=== PATIENT | male | born 1930 | race Caucasian/White ===

== ENCOUNTER → 2016-04-11 | Outpatient (CLI) | payer BC ==
[~2016-04-11] MED LIST: AMLO-110 PO; CALCIUM PO; GABA-112 PO; Iron PO; LOSA1TAB PO; MAG PO; OMEG10007 PO; SIMV10TA2 PO; Stool Softner PO; VITD PO
[2016-04-11 10:09] LABS: HEMATOCRIT 31.4 % (42-52); MEAN CELL VOLUME 89.7 fL (80-100); MEAN CORPUSCULAR HEMOGLOBIN 32.6 pg (25-34); MEAN CORPUSCULAR HGB CONC 36.3 g/dl (32-36); WHITE BLOOD COUNT 3.19 K/uL (4.8-10.8)
[2016-04-11 10:15] LABS: MEAN PLATELET VOLUME 10.1 fL (7.4-10.4); PLATELET COUNT 76 K/uL (130-400)
[2016-04-11 10:40] LABS: BLOOD UREA NITROGEN 43 mg/dl (7-18); BUN/CREATININE RATIO 18.8 (10-20); CALCIUM 9.8 mg/dl (8.5-10.1); CARBON DIOXIDE 27 mmol/L (21-32); CHLORIDE 102 mmol/L (98-107); GLUCOSE 122 mg/dl (70-99); POTASSIUM 4.2 mmol/L (3.5-5.1); SODIUM 138 mmol/L (136-145)
[2016-04-11 11:03] LABS: URINE PROTIEN/CREAT RATIO 0.8 (0-0.2); URINE TOTAL PROTEIN 34.7 mg/dl (0-11.9)
[2016-04-11 12:10] LABS: URINE APPEARANCE CLEAR (CLEAR); URINE BILIRUBIN NEG (NEG); URINE COLOR YELLOW; URINE EPITHELIAL CELL AUTO 0-5 /lpf (0-5); URINE NITRITE NEG (NEG); URINE SPECIFIC GRAVITY 1.006 (1.000-1.030); UROBILINOGEN NEG (NEG)
[2016-04-11 12:19] LABS: MANUAL MICROSCOPIC REQUIRED? NO; REVIEW REQ? NO
[2016-04-11 13:46] LABS: ESTIMATED AVERAGE GLUCOSE 114 mg/dl; HA1C FLAG Normal (Normal)
== END | disposition home or self-care (01) ==
LOC: C.LAB1850 09:18
PROVIDERS: ATTEND Internal Medicine Nephrology
DX: E11.22 Type 2 diabetes mellitus with diabetic chronic kidney disease (principal); N25.81 Secondary hyperparathyroidism of renal origin; D63.8 Anemia in other chronic diseases classified elsewhere; R80.9 Proteinuria, unspecified; N18.4 Chronic kidney disease, stage 4 (severe); I12.9 Hypertensive chronic kidney disease with stage 1 through stage 4 chronic kidney disease, or unspecified chronic kidney disease

== ENCOUNTER → 2016-09-14 | Outpatient (CLI) | payer BC ==
[2016-09-14 10:08] LABS: URINE APPEARANCE CLEAR (CLEAR); URINE BILIRUBIN NEG (NEG); URINE COLOR YELLOW; URINE EPITHELIAL CELL AUTO 0-5 /lpf (0-5); URINE NITRITE NEG (NEG); URINE PH 5.5 (4.5-7.5); URINE SPECIFIC GRAVITY 1.013 (1.000-1.030); UROBILINOGEN NEG (NEG)
[2016-09-14 10:14] LABS: MANUAL MICROSCOPIC REQUIRED? NO; REVIEW REQ? NO
[2016-09-14 10:22] LABS: URINE PROTIEN/CREAT RATIO 0.6 (0-0.2); URINE TOTAL PROTEIN 46.6 mg/dl (0-11.9)
[2016-09-14 10:36] LABS: HEMATOCRIT 33.7 % (42-52); MEAN CELL VOLUME 91.3 fL (80-100); MEAN CORPUSCULAR HEMOGLOBIN 31.2 pg (25-34); MEAN CORPUSCULAR HGB CONC 34.1 g/dl (32-36); MEAN PLATELET VOLUME 10.5 fL (7.4-10.4); PLATELET COUNT 95 K/uL (130-400); RED BLOOD COUNT 3.69 M/uL (4.7-6.1); WHITE BLOOD COUNT 4.09 K/uL (4.8-10.8)
[2016-09-14 10:47] LABS: PLT ESTIMATE DECREASED
[2016-09-14 12:29] LABS: BLOOD UREA NITROGEN 44 mg/dl (7-18); BUN/CREATININE RATIO 18.2 (10-20); CALCIUM 10.4 mg/dl (8.5-10.1); CARBON DIOXIDE 27 mmol/L (21-32); CHLORIDE 104 mmol/L (98-107); GLUCOSE 122 mg/dl (70-99); POTASSIUM 4.4 mmol/L (3.5-5.1); SODIUM 137 mmol/L (136-145)
== END | disposition home or self-care (01) ==
LOC: C.LAB1850 09:01
PROVIDERS: ATTEND Internal Medicine Nephrology
DX: I12.9 Hypertensive chronic kidney disease with stage 1 through stage 4 chronic kidney disease, or unspecified chronic kidney disease (principal); N25.81 Secondary hyperparathyroidism of renal origin; D63.8 Anemia in other chronic diseases classified elsewhere; N18.4 Chronic kidney disease, stage 4 (severe); D61.818 Other pancytopenia; R80.9 Proteinuria, unspecified

== ENCOUNTER → 2016-11-21 | Outpatient (CLI) | payer BC ==
[2016-11-21 16:43] LABS: HEMATOCRIT 33.8 % (42-52); MEAN CELL VOLUME 92.9 fL (80-100); MEAN CORPUSCULAR HEMOGLOBIN 31.9 pg (25-34); MEAN CORPUSCULAR HGB CONC 34.3 g/dl (32-36); RED BLOOD COUNT 3.64 M/uL (4.7-6.1); WHITE BLOOD COUNT 5.98 K/uL (4.8-10.8)
[2016-11-21 17:09] LABS: ALT/SGPT 26 U/L (12-78); BLOOD UREA NITROGEN 61 mg/dl (7-18); BUN/CREATININE RATIO 25.5 (10-20); CALCIUM 10.4 mg/dl (8.5-10.1); CARBON DIOXIDE 26 mmol/L (21-32); CHLORIDE 105 mmol/L (98-107); CHOLESTEROL 97 mg/dl (0-200); GLUCOSE 155 mg/dl (70-99); POTASSIUM 4.3 mmol/L (3.5-5.1); SODIUM 140 mmol/L (136-145)
[2016-11-21 17:11] LABS: AST/SGOT 28 U/L (15-37); CHOLESTEROL/HDL RATIO 3.1; HDL CHOLESTEROL 31 mg/dl; LDL CHOLESTEROL CALCULATED 39 mg/dl; TRIGLYCERIDES 137 mg/dl (0-150); VERY LOW DENSITY LIPOPROT CALC 27 mg/dl
[2016-11-21 17:19] LABS: BASO % 0.5 %; BASO ABS # 0.03 K/uL (0-0.2); COMPLETE YES; EOS % 0.7 %; IG% 0.2 %; LYMPH % 23.4 %; MEAN PLATELET VOLUME 10.8 fL (7.4-10.4); NEUT % 66.2 %; PLATELET COUNT 99 K/uL (130-400); PLT ESTIMATE DECREASED
== END | disposition home or self-care (01) ==
LOC: C.LAB1850 15:08
PROVIDERS: ATTEND Internal Medicine
DX: E11.8 Type 2 diabetes mellitus with unspecified complications (principal); E78.5 Hyperlipidemia, unspecified; D61.818 Other pancytopenia

== ENCOUNTER → 2017-02-22 | Outpatient (CLI) | payer BC ==
[~2017-02-22] MED LIST changes: -AMLO-110 PO; +AMLO5TAB3 PO; +CALC600T9 PO; +DOCU-94 PO; +FERR1TAB23 PO; +FURO-85 PO; +LDDP5 TD; +METO-551 PO; +MORP15TA PO
== END | disposition home or self-care (01) ==
LOC: C.LAB1850 09:10
PROVIDERS: ATTEND Internal Medicine
DX: E78.5 Hyperlipidemia, unspecified (principal)

== ENCOUNTER → 2017-04-24 | Outpatient (CLI) | payer BC ==
[~2017-04-24] MED LIST changes: +AMLO-110 PO; -AMLO5TAB3 PO; -CALC600T9 PO; -DOCU-94 PO; -FERR1TAB23 PO; -FURO-85 PO; -LDDP5 TD; -METO-551 PO; -MORP15TA PO
[2017-04-24 15:38] LABS: HEMATOCRIT 34.1 % (42-52); MEAN CELL VOLUME 92.9 fL (80-100); MEAN CORPUSCULAR HEMOGLOBIN 32.7 pg (25-34); MEAN CORPUSCULAR HGB CONC 35.2 g/dl (32-36); RED CELL DISTRIBUTION WIDTH CV 13.3 % (11.5-14.5); RED CELL DISTRIBUTION WIDTH SD 44.9 fL (36.4-46.3); WHITE BLOOD COUNT 5.25 K/uL (4.8-10.8)
[2017-04-24 16:06] LABS: MEAN PLATELET VOLUME 10.7 fL (7.4-10.4); PLATELET COUNT 94 K/uL (130-400)
[2017-04-24 16:09] LABS: ALBUMIN 3.9 gm/dl (3.4-5.0); BLOOD UREA NITROGEN 49 mg/dl (7-18); CALCIUM 9.9 mg/dl (8.5-10.1); CARBON DIOXIDE 29 mmol/L (21-32); CREATININE 2.45 mg/dl (0.60-1.40); GLUCOSE 117 mg/dl (70-99); PHOSPHORUS 3.1 mg/dl (2.5-4.9); POTASSIUM 4.1 mmol/L (3.5-5.1); SODIUM 136 mmol/L (136-145)
== END | disposition home or self-care (01) ==
LOC: C.LAB1850 14:15
PROVIDERS: ATTEND Internal Medicine Nephrology
DX: E78.5 Hyperlipidemia, unspecified (principal); I12.9 Hypertensive chronic kidney disease with stage 1 through stage 4 chronic kidney disease, or unspecified chronic kidney disease; N25.81 Secondary hyperparathyroidism of renal origin; D63.8 Anemia in other chronic diseases classified elsewhere; N18.4 Chronic kidney disease, stage 4 (severe); R60.0 Localized edema

== ENCOUNTER 2020-09-15 13:59 | Observation (INO) ==
[2020-09-15] MEDS ORDERED: SODIUM CHLORIDE 0.9% 500 ML IV ONE (15:00)
--- NOTE | 2020-09-15 15:06 | Emergency Department Note ---
History of Present Illness General Chief complaint: Illness Stated complaint: DIARRHEA/EXTREME FATIGUE DOESN'T WANT TO EAT OR Time Seen by Provider: 09/15/20 14:09 Source: patient, family (Daughter who is at the bedside), RN notes reviewed and old records reviewed Mode of arrival: ambulatory Limitations: no limitations History of Present Illness Maximum Pain Intensity: 0 This patient is an 89-year-old male who comes in after having increasing fatigue weakness decreased appetite and diarrhea over the last week. He does tend to have diarrhea off and on but is from worse. It is 1-2 times a day. Is been nonbloody nonmucus. He denies any pain anywhere. No abdominal pain or fever or chills. No chest pain shortness of breath or dizziness. He is lost about 10 pounds in the last 6 months. He does have some baseline memory issues that may have gotten a little bit worse. He has a history of a pacemaker and A. fib but is not on any anticoagulation has history of prostate cancer in the past as well. He has had his Covid vaccine x2. No focal numbness or weakness. When I ask him why he is not eating he says that he is just not hungry. Home Medications Medication Instructions Recorded Confirmed Type omega-3 fatty acids-fish oil 360 1 cap PO BID #60 cap 08/01/18 09/15/20 Rx mg-1,200 mg capsule (Fish Oil) blood sugar diagnostic (Contour ea 12/10/18 08/18/20 History Test Strips) lancets (Microlet Lancet) ea 12/10/18 08/18/20 History amlodipine 5 mg tablet 5 mg PO BID #60 tab 02/06/20 09/15/20 Rx metoprolol tartrate 50 mg tablet 50 mg PO BID #180 tab 05/26/20 09/15/20 Rx multivitamin 1 tab PO DAILY 08/18/20 09/15/20 History simvastatin 10 mg tablet 10 mg PO QAM 09/15/20 09/15/20 History tamsulosin 0.4 mg capsule (Flomax) 0.4 mg PO QAM 09/15/20 09/15/20 History Allergies Allergy/AdvReac Type Severity Reaction Status Date / Time Dyazide Allergy Unknown patient Verified 12/01/10 16:09 does not remember hydrochlorothiazide Allergy Unknown patient Unverified 09/15/20 15:56 does not remember triamterene Allergy Unknown patient Unverified 09/15/20 15:56 does not remember Past Med/Surg History Medical History Adenocarcinoma of prostate Adrenal cortical adenoma Anemia Aneurysm of thoracic aorta Aortic regurgitation Cardiac pacemaker Chronic kidney disease, 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 Diabetic peripheral neuropathy DVT (deep venous thrombosis) Hyperlipidemia Hypertension Myelodysplasia (myelodysplastic syndrome) Osteoarthritis Vertebral compression fracture Surgical History History of radical retropubic prostatectomy S/P inguinal hernia repair S/P placement of cardiac pacemaker Family History Sister Chronic kidney disease Brother Prostate cancer Denies family history of Ovarian cancer Myocardial infarction Breast cancer Colorectal cancer Social History Smoking Status: Former smoker Second Hand Exposure: Yes; Hx Alcohol Use: No (STOPPED DRINKING ALCOHOL) Hx Substance Use: No Preferred Language: Belarusian Communication Ability: Effective Visual Impairment: No Limitations Hearing Ability: Normal marital status: Current Living Situation: Family current occupational status: retired Feels Safe at Home: Yes Childhood Exposure to Second-Hand Smoke: Yes Dental Care, Regularly: Yes Physical Activity Frequency: Does not Exercise Seatbelt Use: always Sunscreen Use: No Review of Systems A total of 10 systems reviewed and were otherwise negative Physical Exam Vital Signs Vital Signs - 24 hr 09/15/20 14:04 09/15/20 15:27 Temperature 36.6 C Temperature Source Temporal Artery Scan Pulse Rate 71 Pulse Rhythm Regular Pulse Strength Normal Respiratory Rate 16 Respiratory Effort / Characteristics Non-Labored Respiratory Depth Normal Respiratory Pattern Regular Blood Pressure 117/47 L Blood Pressure Mean 70 Blood Pressure Position Sitting Pulse Oximetry 97 Oxygen Delivery Method Room Air Room Air Sepsis Recent Fever Within 48 Hours No Sepsis New/Unexplained Change in Mental Status N/A Sepsis Action Taken by Nursing No Action Required General: Well developed well nourished somewhat cachectic older male who appears in no acute distress, breathing comfortably on room air. Normal speech HEENT: Normal cephalic atraumatic. Pupils are equal round and reactive to light. Extraocular movements are intact. Oropharynx is pink with moist mucous membranes. No swelling of the mouth lips or tongue. Neck: Supple with a midline trachea. No meningeal signs or stiffness, no JVD or bruits. No Stridor. Chest: Clear to auscultation bilaterally. No wheezes or rhonchi. No increased work of breathing. Heart: Regular rate and rhythm without murmurs or gallops. Abdomen: Soft nontender, nondistended without rebound guarding or rigidity. Extremities: No cyanosis clubbing or edema. No calf tenderness or assymetry Spine/Back. Non tender to palpation. No CVA tenderness Skin: Good turgor without rashes. Neurologic exam: Cranial nerves two through 12 are intact. Motor and sensation are intact and symmetrical throughout. Course Administered Medications Discontinued Medications Sodium Chloride (Nss) 500 mls @ 999 mls/hr IV .Q31M ONE Stop: 09/15/20 15:30 Last Infusion: 09/15/20 15:57 Dose: 0 mls/hr Documented by: [id number] Admin: 09/15/20 15:18 Dose: 999 mls/hr Documented by: [id number] Medical Decision Making Differential Diagnosis Dehydration, electrolyte or metabolic abnormality, cardiac disease, diarrhea, C ovid, electrolyte or metabolic abnormality, diarrhea illness, C. difficile, infection Medical Records Attestation: I reviewed the patient's medical records. Home Medications Current Medication List: was personally reviewed by me Laboratory Data Attestation: I reviewed the patient's lab results. Result diagrams: 09/15/20 15:16 09/15/20 15:16 Lab Results 09/15/20 09/15/20 09/15/20 Range/Units 15:16 15:16 15:16 WBC 4.60 L (4.8-10.8) K/uL RBC 2.99 L (4.7-6.1) M/uL Hgb 10.1 L (14.0-18.0) g/dL Hct 27.6 L (42-52) % MCV 92.3 (80-100) fL MCH 33.8 (25-34) pg MCHC 36.6 H (32-36) g/dL RDW Std Deviation 45.3 (36.4-46.3) fL RDW Coeff of Liliana 13.4 (11.5-14.5) % Plt Count 109 L (130-400) K/uL MPV 10.2 (7.4-10.4) fL Immature Gran % (Auto) 0.7 % Neut % (Auto) 65.8 % Lymph % (Auto) 25.0 % Kinney % (Auto) 6.7 % Eos % (Auto) 1.1 % Baso % (Auto) 0.7 % Neut # (Auto) 3.03 (1.4-6.5) K/uL Lymph # (Auto) 1.15 L (1.2-3.4) K/uL Kinney # (Auto) 0.31 (0.11-0.59) K/uL Eos # (Auto) 0.05 (0-0.5) K/uL Baso # (Auto) 0.03 (0-0.2) K/uL Immature Gran # (Auto) 0.03 H (0.00-0.02) K/uL Sodium 135 L (136-145) mmol/L Potassium 4.2 (3.5-5.1) mmol/L Chloride 109 H (98-107) mmol/L Carbon Dioxide 20 L (21-32) mmol/L Anion Gap 7.0 (3-11) BUN 59 H (7-18) mg/dl Creatinine 2.58 H (0.6-1.4) mg/dl Est Cr Clr Drug Dosing 15.8 ml/min Est GFR ( Amer) 24.5 ml/min Est GFR (Non-Af Amer) 21.1 ml/min BUN/Creatinine Ratio 23.0 H (10-20) Glucose 136 H (70-99) mg/dl Lactate 1.3 (0.4-2.0) mmol/L Calcium 9.2 (8.5-10.1) mg/dl Total Bilirubin 0.6 (0.2-1) mg/dl AST 22 (15-37) U/L ALT 27 (12-78) U/L Alkaline Phosphatase 59 (45-117) U/L Troponin I < 0.015 (0-0.045) ng/ml Total Protein 6.9 (6.4-8.2) gm/dl Albumin 3.5 (3.4-5.0) gm/dl Globulin 3.4 (2.5-4.0) gm/dl Albumin/Globulin Ratio 1.0 (0.9-2) TSH 1.580 (0.300-4.500) uIu/ml COVID-19 Eval Order SARS-CoV-2 (PCR) (Negative) 09/15/20 09/15/20 Range/Units Unknown Unknown WBC (4.8-10.8) K/uL RBC (4.7-6.1) M/uL Hgb (14.0-18.0) g/dL Hct (42-52) % MCV (80-100) fL MCH (25-34) pg MCHC (32-36) g/dL RDW Std Deviation (36.4-46.3) fL RDW Coeff of Liliana (11.5-14.5) % Plt Count (130-400) K/uL MPV (7.4-10.4) fL Immature Gran % (Auto) % Neut % (Auto) % Lymph % (Auto) % Kinney % (Auto) % Eos % (Auto) % Baso % (Auto) % Neut # (Auto) (1.4-6.5) K/uL Lymph # (Auto) (1.2-3.4) K/uL Kinney # (Auto) (0.11-0.59) K/uL Eos # (Auto) (0-0.5) K/uL Baso # (Auto) (0-0.2) K/uL Immature Gran # (Auto) (0.00-0.02) K/uL Sodium (136-145) mmol/L Potassium (3.5-5.1) mmol/L Chloride (98-107) mmol/L Carbon Dioxide (21-32) mmol/L Anion Gap (3-11) BUN (7-18) mg/dl Creatinine (0.6-1.4) mg/dl Est Cr Clr Drug Dosing ml/min Est GFR ( Amer) ml/min Est GFR (Non-Af Amer) ml/min BUN/Creatinine Ratio (10-20) Glucose (70-99) mg/dl Lactate (0.4-2.0) mmol/L Calcium (8.5-10.1) mg/dl Total Bilirubin (0.2-1) mg/dl AST (15-37) U/L ALT (12-78) U/L Alkaline Phosphatase (45-117) U/L Troponin I (0-0.045) ng/ml Total Protein (6.4-8.2) gm/dl Albumin (3.4-5.0) gm/dl Globulin (2.5-4.0) gm/dl Albumin/Globulin Ratio (0.9-2) TSH (0.300-4.500) uIu/ml COVID-19 Eval Order Covid19 at [facility] SARS-CoV-2 (PCR) NEGATIVE (Negative) Imaging Data Attestation: I personally reviewed and interpreted this imaging study as follows: My Impression: Chest x-raycardiomegaly without any definite CHF pneumonia or pneumothorax Radiologist's Impression: Chest X-Ray 09/15/20 14:49 XR chest 1V portable HISTORY: weakness COMPARISON: Chest 12/21/2016. FINDINGS: The lungs are hyperexpanded with mild apical predominant emphysematous changes. A few bibasilar linear densities favor scarring. This is similar to the prior study. No new focal lung consolidations to suggest pneumonia. No evidence for pulmonary edema. The heart remains mildly enlarged. There is a left-sided dual-chamber pacemaker. IMPRESSION: 1. Mild cardiomegaly and emphysema. 2. Bibasilar linear densities, unchanged. This favors scarring. 3. No acute process within the chest. ACT 112: Negative or not required by law. Electronically signed by: Ken Patrick M.D. 09/15/2020 4:08 PM ECG Data Attestation: I personally reviewed and interpreted this ECG as follows: Indication: + weakness Rate (beats per minute): 68 Rhythm: + other (Atrial paced rhythm with prolonged AV conduction) ECG Intervals/blocks: + Incomplete right bundle branch block and + Normal QT ECG [place]: + Normal ECG ST segments: + Normal ST segments ECG Findings: no PACs or no PVCs Comparison ECG Date: from (Compared to 11/29/2011, there may be a conduction delay in the atrial paced lead) MDM Narrative This patient comes in with weakness over the last week decreased appetite fatigue and diarrhea. The patient downplays his symptoms and his daughter is concerned that he is getting worse. He looks well on exam and stable vital signs. IV access was established and he was hydrated with IV normal saline bolus. Multiple blood testing was obtained. Stool studies were obtained. EKG and chest x-ray were obtained. He was reassessed frequently. He did not give a stool sample. He was able to urinate. He has no significant white count or f ever to suggest infection. He does have renal insufficiency but it is about the same as normal. His lactic acid is not elevated. EKG does not suggest acute coronary syndrome or arrhythmia. He seems to have had a functional decline at home. He is got increasingly weak he is not eating. He is very wobbly on his feet. His symptoms are nonfocal. According to his chart over the last 6 weeks his weight is down almost 30 pounds. I do think he needs to be admitted/observe for further treatment and evaluation we have consulted the not any hospitalist team to see him. Continuous cardiac monitoring: An order was placed in the EMR for continuous cardiac monitoring. The patient was noted to have a paced rhythm with a rate of 70 upon my interpretation Impression & Plan Weakness, Pacemaker, Ambulatory dysfunction, Lab test negative for COVID-19 virus, Recent weight loss Discharge Plan Visit Data Chief Complaint: Illness Stated Complaint: DIARRHEA/EXTREME FATIGUE DOESN'T WANT TO EAT OR ED Provider: Oseas Salazar ED Midlevel Provider: Alli Kent Discharge Problem: Weakness, Pacemaker, Ambulatory dysfunction, Lab test negative for COVID-19 vi renny, Recent weight loss Patient Disposition: Being Evaluated by Hospitalist Forms Stand Alone Forms: My [facility] Flavours Prescriptions Prescriptions: No Action amlodipine 5 mg tablet 5 mg PO BID Qty: 60 RF: 11 metoprolol tartrate 50 mg tablet 50 mg PO BID Qty: 180 RF: 3 omega-3 fatty acids-fish oil [Fish Oil] 360-1,200 mg capsule 1 cap PO BID Qty: 60 RF: 0 (DME) Contour Test Strips strip See Dose Instructions .ROUTE .MEDSUPPLY RF: 0 (DME) lancets [Microlet Lancet] misc See Dose Instructions .ROUTE .MEDSUPPLY RF: 0 multivitamin Tablet 1 tab PO DAILY RF: 0 simvastatin 10 mg tablet 10 mg PO QAM RF: 0 tamsulosin [Flomax] 0.4 mg capsule 0.4 mg PO QAM RF: 0 Referrals Referrals: Nathan Godinez MD [Primary Care Provider] -
[2020-09-15 15:31] LABS: Basophils # (auto) 0.03 K/uL (0-0.2); Basophils % (auto) 0.7 %; Eosinophils # (auto) 0.05 K/uL (0-0.5); Eosinophils % (auto) 1.1 %; Hematocrit (blood only) 27.6 % (42-52); Hemoglobin 10.1 g/dL (14.0-18.0); Immature Granulocytes # (auto) 0.03 K/uL (0.00-0.02); Immature Granulocytes % (auto) 0.7 %; Lymphocytes # (auto) 1.15 K/uL (1.2-3.4); Mean Corpuscular Hemoglobin 33.8 pg (25-34); Mean Corpuscular Hgb Conc 36.6 g/dL (32-36); Mean Corpuscular Volume 92.3 fL (80-100); Mean Platelet Volume 10.2 fL (7.4-10.4); Monocytes # (auto) 0.31 K/uL (0.11-0.59); Monocytes % (auto) 6.7 %; Neutrophils # (auto) 3.03 K/uL (1.4-6.5); Neutrophils % (auto) 65.8 %; Platelet Count 109 K/uL (130-400); RDW Coefficient of Variation 13.4 % (11.5-14.5); RDW Standard Deviation 45.3 fL (36.4-46.3); Red Blood Count 2.99 M/uL (4.7-6.1)
[2020-09-15 15:48] LABS: Alanine Aminotransferase 27 U/L (12-78); Albumin Level 3.5 gm/dl (3.4-5.0); Aspartate Aminotransferase 22 U/L (15-37); Blood Urea Nitrogen 59 mg/dl (7-18); Calcium 9.2 mg/dl (8.5-10.1); Carbon Dioxide 20 mmol/L (21-32); Chloride 109 mmol/L (98-107); Creatinine Clr Calc Pharmacy 15.8 ml/min; Est GFR (African American) 24.5 ml/min; Est GFR (Non-African American) 21.1 ml/min; Glucose 136 mg/dl (70-99); Potassium 4.2 mmol/L (3.5-5.1); Sodium 135 mmol/L (136-145)
[2020-09-15 15:59] LABS: Alkaline Phosphatase 59 U/L (45-117); Bilirubin,Total 0.6 mg/dl (0.2-1); Globulin 3.4 gm/dl (2.5-4.0); Total Protein 6.9 gm/dl (6.4-8.2); Troponin I < 0.015 ng/ml (0-0.045)
--- NOTE | 2020-09-15 16:09 | XRay Report ---
XR chest 1V portable HISTORY: weakness COMPARISON: Chest 12/21/2016. FINDINGS: The lungs are hyperexpanded with mild apical predominant emphysematous changes. A few bibas ilar linear densities favor scarring. This is similar to the prior study. No new focal lung consolida tions to suggest pneumonia. No evidence for pulmonary edema. The heart remains mildly enlarged. There is a left-sided dual-chamber pacemaker. IMPRESSION: 1. Mild cardiomegaly and emphysema. 2. Bibasilar linear densities, unchanged. This favors scarring. 3. No acute process within the chest. ACT 112: Negative or not required by law. Electronically signed by: Ken Patrick M.D. 09/15/2020 4:08 PM
--- NOTE | 2020-09-15 18:04 | History & Physical Report ---
Date of Service September 15, 2020 Assessment & Plan (1) Weakness: Plan: 1-2 months of increase sleepiness and fatigue. - no gross muscle weakness on exam - likley related to decrease in caloric intake - B12 - 820 from 529 - Folate level in the morning - Will add thiamine 300 mg IV daily for malnourishment - Calorie count, nutrition consult, evaluate for nutritional supplementation/meal replacement, nutrition log likely be helpful - Patient does not appear depressed and is in good spirits - His wbc counts and hgb/hct have been stable over the past year - Could this be related to his cognitive impairment- consider re-engagement of cognition medication declined by patient back in January - This may help his overall stimulation - blood cultures ordered in EMD- follow (2) Diarrhea: Plan: Not infectious appearing, continue stool culture likely to be unhelpful - will follow amount and frequency while in house - this does not appear to be malabsorption but secondary to decreased intake - Will send TGA and IGA for evaluation of celiac - Follow stool count with nutritional intake for true evaluation of process - Could consider GI consult for EGD/colonoscopy (3) Recent weight loss: Plan: As above- (4) Hyperlipidemia: Plan: Continue statin (5) S/P placement of cardiac pacemaker: Plan: Appropriatly sensing and pacing - no acute needs (6) Hypertension: Plan: Well controlled (7) Mild cognitive impairment: Plan: Was to have nuerocognitive testing as outpatient- not sure if this was completed - This may be playing a bigger role in his function than originally thought (8) Pancytopenia: Plan: Myelodysplasia as underlying pathology - WBC, HGB/HCT, PLT count low - but at baseline and stable for the past year (9) Secondary hyperparathyroidism: Plan: Calcium normal - last PTH 86.4 - not on current therapy History of Present Illness Primary Care Provider: Nathan Godinez MD 89 YOM with past medical history of: sick sinus syndrome with pacemaker insertion, thoracic aneurysm, aortic regurgitation, memory impairment, CKD IV, HTN, anemia, myelodysplasia (no treatment), adenocarcinoma of the prostate s/p prostatectomy. Frail appearing gentlemen brought to the EMD today with his daughter for concerns of decrease in appetite and fluid intake, increase in sleepiness as well as diarrhea. This has been going on for over the past month or two with noted weight loss per the daughter. Review of his outpatient appointment with his PCP on the same scale the patient was at 160lbs in March and 154lbs in July. He states that he just does not feel hungry to eat, he denies early satiety or nausea/vomiting while eating. He doesn't eat much meat or protein per the daughter. He has a loose BM about every other day, which is described as dark brown to brown, mostly liquid with some small formed particles that float on the top of the water. There is no blood or mucous in the stools. He does not have the urge to go to the bathroom shortly after he eats or drinks. There is no pain with his bowel movements or cramping of the abdomen. The patient had this evaluated by his PCP last month with a b12 level of 820, TSH 1.5 (today) and 2.2 in July. Patient will be observed and continue to evaluate his intake, calorie count, stool amount and assess for loss of appetite. Allergies Allergy/AdvReac Type Severity Reaction Status Date / Time Dyazide Allergy Unknown patient Verified 12/01/10 16:09 does not remember hydrochlorothiazide Allergy Unknown patient Unverified 09/15/20 15:56 does not remember triamterene Allergy Unknown patient Unverified 09/15/20 15:56 does not remember Home Medications Medication Instructions Recorded Confirmed Type omega-3 fatty acids-fish oil 360 1 cap PO BID #60 cap 08/01/18 09/15/20 Rx mg-1,200 mg capsule (Fish Oil) blood sugar diagnostic (Contour ea 12/10/18 08/18/20 History Test Strips) lancets (Microlet Lancet) ea 12/10/18 08/18/20 History amlodipine 5 mg tablet 5 mg PO BID #60 tab 02/06/20 09/15/20 Rx metoprolol tartrate 50 mg tablet 50 mg PO BID #180 tab 05/26/20 09/15/20 Rx multivitamin 1 tab PO DAILY 08/18/20 09/15/20 History simvastatin 10 mg tablet 10 mg PO QAM 09/15/20 09/15/20 History tamsulosin 0.4 mg capsule (Flomax) 0.4 mg PO QAM 09/15/20 09/15/20 History Past Med/Surg History Medical History Adenocarcinoma of prostate Adrenal cortical adenoma Anemia Aneurysm of thoracic aorta Aortic regurgitation Cardiac pacemaker Chronic kidney disease, 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 Diabetic peripheral neuropathy DVT (deep venous thrombosis) Hyperlipidemia Hypertension Myelodysplasia (myelodysplastic syndrome) Osteoarthritis Vertebral compression fracture Surgical History History of radical retropubic prostatectomy S/P inguinal hernia repair S/P placement of cardiac pacemaker Family History Sister Chronic kidney disease Brother Prostate cancer Denies family history of Ovarian cancer Myocardial infarction Breast cancer Colorectal cancer Social History Smoking Status: Former smoker Second Hand Exposure: Yes; Hx Alcohol Use: No (STOPPED DRINKING ALCOHOL) Hx Substance Use: No Preferred Language: German Communication Ability: Effective Visual Impairment: No Limitations Hearing Ability: Normal marital status: Current Living Situation: Family current occupational status: retired Feels Safe at Home: Yes Childhood Exposure to Second-Hand Smoke: Yes Dental Care, Regularly: Yes Physical Activity Frequency: Does not Exercise Seatbelt Use: always Sunscreen Use: No Review of Systems Review of Systems: REVIEW OF SYSTEMS: Constitutional: No fever, sweats or chills Eyes: No diplopia, no worsening or blurred vision ENT: (+) difficulty hearing, no trouble swallowing Respiratory: No cough, sputum, dyspnea at rest or on exertion Cardiovascular: No chest pain, tightness or palpitations Abdomen: (+) diarrhea, No pain, nausea, vomiting, or constipation Musculoskeletal: No joint pain, calf pain, swelling Neurologic: (+) fatigue and weakness, NO numbness/tingling, or balance problems Psychiatric: No anxiety or depression Skin: No rash or itch Physical Exam Physical Exam: PHYSICAL EXAM: General: awake, alert, no apparent distress Head: Normocephalic, atraumatic ENT: PERRL, EOMI, no pharyngeal exudate, mucous membranes moist Neuro: AAO x 3, speech clear and appropriate, strength intact bilaterally 5/5, sensation intact and equal all extremities and dermatomes, no pronator drift Chest: equal rise and fall of the chest, no accessory muscle use, no heaves or thrills, Clear to auscultation, on room air, Cardiac: Regular rate and rhythm, telemetry reviewed- appropriately paced NSR, skin warm dry, cap refill <3 seconds, peripheral pulses +2 no JVD, no murmur, no edema GI: NABS x 4 quadrants, soft, nontender to palpation, no rebound, guarding or tenderness : Spontaneously voiding, no pain, no CVA tenderness, Extremities: Normal inspection, no peripheral edema or erythema, calfs nontender to palpation Psych: Normal mood and affect Skin: no rash or erythema Results & Data Results & Data ([facility]) Vital Signs (Past 12 Hours) Vital Signs Temp Pulse Resp BP Pulse Ox 09/15/20 14:04 36.6 C 71 16 117/47 L 97 Laboratory Results Abnormal lab results 09/15/20 09/15/20 Range/Units 15:16 15:16 WBC 4.60 L (4.8-10.8) K/uL RBC 2.99 L (4.7-6.1) M/uL Hgb 10.1 L (14.0-18.0) g/dL Hct 27.6 L (42-52) % MCHC 36.6 H (32-36) g/dL Plt Count 109 L (130-400) K/uL Lymph # (Auto) 1.15 L (1.2-3.4) K/uL Immature Gran # (Auto) 0.03 H (0.00-0.02) K/uL Sodium 135 L (136-145) mmol/L Chloride 109 H (98-107) mmol/L Carbon Dioxide 20 L (21-32) mmol/L BUN 59 H (7-18) mg/dl Creatinine 2.58 H (0.6-1.4) mg/dl BUN/Creatinine Ratio 23.0 H (10-20) Glucose 136 H (70-99) mg/dl Diagnostic Findings Chest X-Ray 09/15/20 14:49 XR chest 1V portable HISTORY: weakness COMPARISON: Chest 12/21/2016. FINDINGS: The lungs are hyperexpanded with mild apical predominant emphysematous changes. A few bibasilar linear densities favor scarring. This is similar to the prior study. No new focal lung consolidations to suggest pneumonia. No evidence for pulmonary edema. The heart remains mildly enlarged. There is a left-sided dual-chamber pacemaker. IMPRESSION: 1. Mild cardiomegaly and emphysema. 2. Bibasilar linear densities, unchanged. This favors scarring. 3. No acute process within the chest. ACT 112: Negative or not required by law. Electronically signed by: Ken Patrick M.D. 09/15/2020 4:08 PM Medications Administered Discontinued Medications Sodium Chloride (Nss) 500 mls @ 999 mls/hr IV .Q31M ONE Stop: 09/15/20 15:30 Last Infusion: 09/15/20 15:57 Dose: 0 mls/hr Documented by: [id number] Admin: 09/15/20 15:18 Dose: 999 mls/hr Documented by: [id number] ECG Additional Comments: Atrial-paced rhythm with prolonged AV conduction Incomplete right bundle branch block Abnormal ECG When compared with ECG of 29-NOV-2011 14:46, No significant change was found Code Status & VTE Plan Code Status CODE: DNR/DNI VTE: SCDS, ambulation Supervising Physician Co-Signing Physician Notes I supervised Zackary Sharp NP on this admission. I interviewed and examined the patient independently of him. The plan is as written in the DRAFTER's note except for any following changes/exceptions: None Very pleasant 89yo M w/ hx of some cognitive difficulties and CKD who presents as a weakness/failure to thrive. His diarrhea sounds fairly mild and chronic, so I'm not entirely sure that it is driving this process. Unclear cause of his weight loss as all labs look fairly stable from priors, so not sure what would be driving the change in his function. Will monitor diet and diarrhea while in the hospital. Could consider a GI consult for further testing for malabsorption. Diarrhea could be microscopic colitis, though I don't think this should be causing weight loss. PG Care Time/CCT Total # of Minutes Spent Total Time Spent with Patient: Total time spent is greater than 50% in coordination of care (as documented) at patient's floor/unit and/or counseling patient: Coding Level of Care Code INT OBSERVATION CARE 70M LVL 3 Diagnoses Weakness R53.1 Recent weight loss R63.4 Hyperlipidemia E78.2 Hyperlipidemia type: mixed hyperlipidemia S/P placement of cardiac pacemaker Z95.0 Hypertension I10 Mild cognitive impairment G31.84 Pancytopenia D61.818 Secondary hyperparathyroidism N25.81 Diarrhea R19.7 (1) Hyperlipidemia Hyperlipidemia type: mixed hyperlipidemia Qualified Code(s): E78.2 - Mixed hyperlipidemia
[2020-09-15] MEDS ORDERED: LACTATED RINGER'S 1,000 ML IV ONE (18:12)
[2020-09-15 18:18] LABS: Appearance Urine Clear (Clear); Bacteria Urine Automated Negative (Negative); Bilirubin Urine Negative (Negative); Blood Urine 1+ (Negative); Color Urine Yellow; Glucose Urine UA Negative (Negative); Ketones Urine Negative (Negative); Leukocyte Esterase Urine Negative (Negative); Nitrite Urine Negative (Negative); Protein Urine 1+ (Negative); RBC Urine Automated 0-4 /hpf (0-4); Specific Gravity Urine 1.009 (1.000-1.030); Urobilinogen Urine Negative (Negative)
--- NOTE | 2020-09-15 19:36 | Electrocardiogram Report ---
Test Reason : Blood Pressure : / mmHG Vent. Rate : 068 BPM Atrial Rate : 041 BPM P-R Int : 416 ms QRS Dur : 112 ms QT Int : 408 ms P-R-T Axes : 000 064 028 degrees QTc Int : 433 ms Atrial-paced rhythm with prolonged AV conduction Incomplete right bundle branch block Abnormal ECG When compared with ECG of 29-NOV-2011 14:46, [place] interval markedly increased Confirmed by Elian Phan ([id number]) on 09/15/2020 7:36:32 PM Referred By: REFERRED SELF Confirmed By:Elian Phan
[2020-09-15] MEDS ORDERED: ACETAMINOPHEN 325 MG TAB PO PRN (21:20)
[2020-09-15] MEDS: METOPROLOL TARTRATE 50 MG TAB PO SCH (22:48)
[2020-09-15] MEDS: amLODIPine BESYLATE 5 MG TAB PO SCH (22:48)
[2020-09-15] MEDS: THIAMINE HCL 300 MG in SODIUM CHLORIDE 0.9% 50 ML IV SCH (22:52)
[2020-09-16 08:56] LABS: Basophils # (auto) 0.03 K/uL (0-0.2); Basophils % (auto) 0.6 %; Eosinophils # (auto) 0.08 K/uL (0-0.5); Eosinophils % (auto) 1.5 %; Hematocrit (blood only) 28.2 % (42-52); Hemoglobin 10.1 g/dL (14.0-18.0); Immature Granulocytes # (auto) 0.03 K/uL (0.00-0.02); Immature Granulocytes % (auto) 0.6 %; Lymphocytes # (auto) 1.24 K/uL (1.2-3.4); Lymphocytes % (auto) 23.6 %; Mean Corpuscular Hemoglobin 33.1 pg (25-34); Mean Corpuscular Hgb Conc 35.8 g/dL (32-36); Mean Corpuscular Volume 92.5 fL (80-100); Mean Platelet Volume 10.3 fL (7.4-10.4); Monocytes # (auto) 0.38 K/uL (0.11-0.59); Monocytes % (auto) 7.2 %; Neutrophils # (auto) 3.49 K/uL (1.4-6.5); Neutrophils % (auto) 66.5 %; Platelet Count 112 K/uL (130-400); RDW Coefficient of Variation 13.5 % (11.5-14.5); RDW Standard Deviation 45.8 fL (36.4-46.3); Red Blood Count 3.05 M/uL (4.7-6.1); White Blood Count 5.25 K/uL (4.8-10.8)
[2020-09-16] MEDS: TAMSULOSIN HCL 0.4 MG CAP PO SCH (09:09)
[2020-09-16] MEDS: amLODIPine BESYLATE 5 MG TAB PO SCH ×2 (09:09→20:38)
[2020-09-16] MEDS: SIMVASTATIN 10 MG TAB PO SCH (09:09)
[2020-09-16] MEDS: METOPROLOL TARTRATE 50 MG TAB PO SCH ×2 (09:09→20:37)
[2020-09-16] MEDS: THIAMINE HCL 300 MG in SODIUM CHLORIDE 0.9% 50 ML IV SCH (09:16)
[2020-09-16 09:24] LABS: BUN Creatinine Ratio 23.1 (10-20); Calcium 9.2 mg/dl (8.5-10.1); Est GFR (African American) 25.8 ml/min; Est GFR (Non-African American) 22.3 ml/min; Magnesium 2.1 mg/dl (1.8-2.4); Potassium 4.1 mmol/L (3.5-5.1)
--- NOTE | 2020-09-16 21:00 | Hospitalist Progress Note ---
Date of Service September 16, 2020 Assessment & Plan (1) Weakness: Plan: 1-2 months of increase sleepiness and fatigue. - no gross muscle weakness on exam - likley related to decrease in caloric intake - B12 - 820 from 529 - Folate level is normal. - Will add thiamine 300 mg IV daily for malnourishment - Calorie count, nutrition consult, evaluate for nutritional supplementation/meal replacement, nutrition log likely be helpful - Patient does not appear depressed and is in good spirits - His wbc counts and hgb/hct have been stable over the past year -Inflammatory markers are negative. - Could this be related to his cognitive impairment- consider re-engagement of cognition medication declined by patient back in January - This may help his overall stimulation - blood cultures ordered in EMD -May all be related to his decreased calorie intake, will likely benefit from followup with PCP. (2) Diarrhea: Plan: Not infectious appearing, continue stool culture likely to be unhelpful - will follow amount and frequency while in house - this does not appear to be malabsorption but secondary to decreased intake - Will send TGA and IGA for evaluation of celiac - Follow stool count with nutritional intake for true evaluation of process - Could consider GI consult for EGD/colonoscopy -will defer for outpatient. (3) Recent weight loss: Plan: As above- (4) Hyperlipidemia: Plan: Continue statin (5) S/P placement of cardiac pacemaker: Plan: Appropriatly sensing and pacing - no acute needs (6) Hypertension: Plan: Well controlled (7) Mild cognitive impairment: Plan: Was to have nuerocognitive testing as outpatient- not sure if this was completed - This may be playing a bigger role in his function than originally thought -likely playing a role. (8) Pancytopenia: Plan: Myelodysplasia as underlying pathology - WBC, HGB/HCT, PLT count low - but at baseline and stable for the past year (9) Secondary hyperparathyroidism: Plan: Calcium normal - last PTH 86.4 - not on current therapy Admission and Anticipated Discharge Date Admission Date: September 15, 2020 Subjective Patient does not recall why he is in the hospital and has no new complaints at this time. Review of Systems Review of Systems: All systems reviewed & are unremarkable except as noted in HPI & below Physical Exam Physical Exam: General: awake, alert, no apparent distress Head: Normocephalic, atraumatic ENT: PERRL, EOMI, no pharyngeal exudate, mucous membranes moist Neuro: AAO x 3, speech clear and appropriate, strength intact bilaterally 5/5, sensation intact and equal all extremities and dermatomes, no pronator drift Chest: equal rise and fall of the chest, no accessory muscle use, no heaves or thrills, Clear to auscultation, on room air, Cardiac: Regular rate and rhythm, telemetry reviewed- appropriately paced NSR, skin warm dry, cap refill <3 seconds, peripheral pulses +2 no JVD, no murmur, no edema GI: NABS x 4 quadrants, soft, nontender to palpation, no rebound, guarding or tenderness : Spontaneously voiding, no pain, no CVA tenderness, Extremities: Normal inspection, no peripheral edema or erythema, calfs nontender to palpation Psych: Normal mood and affect Skin: no rash or erythema Results & Data Results & Data ([facility]) Vital Signs (Past 12 Hours) Vital Signs Temp Pulse Resp BP Pulse Ox 09/16/20 15:04 36.5 C 59 L 18 135/61 94 PG Care Time/CCT Total # of Minutes Spent Total Time Spent with Patient: Total time spent is greater than 50% in coordination of care (as documented) at patient's floor/unit and/or counseling patient: Coding Level of Care Code 39646 Subseq Obs Care Lvl 3 Diagnoses Weakness R53.1 Diarrhea R19.7 Recent weight loss R63.4 Hyperlipidemia E78.2 Hyperlipidemia type: mixed hyperlipidemia S/P placement of cardiac pacemaker Z95.0 Hypertension I10 Mild cognitive impairment G31.84 Pancytopenia D61.818 Secondary hyperparathyroidism N25.81 Time Spent (min) 35 (1) Hyperlipidemia Hyperlipidemia type: mixed hyperlipidemia Qualified Code(s): E78.2 - Mixed hyperlipidemia
[2020-09-16] MEDS: LACTATED RINGER'S 1,000 ML IV SCH (22:47)
[2020-09-17 07:55] LABS: Hematocrit (blood only) 22.6 % (42-52); Hemoglobin 8.2 g/dL (14.0-18.0); Mean Corpuscular Hemoglobin 33.6 pg (25-34); Mean Corpuscular Hgb Conc 36.3 g/dL (32-36); Mean Corpuscular Volume 92.6 fL (80-100); RDW Coefficient of Variation 13.5 % (11.5-14.5); RDW Standard Deviation 45.3 fL (36.4-46.3); Red Blood Count 2.44 M/uL (4.7-6.1); White Blood Count 4.84 K/uL (4.8-10.8)
[2020-09-17 08:18] LABS: Basophils # (auto) 0.03 K/uL (0-0.2); Basophils % (auto) 0.6 %; Eosinophils # (auto) 0.07 K/uL (0-0.5); Eosinophils % (auto) 1.4 %; Immature Granulocytes # (auto) 0.03 K/uL (0.00-0.02); Immature Granulocytes % (auto) 0.6 %; Lymphocytes # (auto) 1.43 K/uL (1.2-3.4); Lymphocytes % (auto) 29.5 %; Mean Platelet Volume 9.7 fL (7.4-10.4); Monocytes # (auto) 0.38 K/uL (0.11-0.59); Monocytes % (auto) 7.9 %; Platelet Count 96 K/uL (130-400); Platelet Estimate Decreased (Normal)
[2020-09-17 08:26] LABS: Albumin Level 2.8 gm/dl (3.4-5.0); BUN Creatinine Ratio 21.2 (10-20); Calcium 8.8 mg/dl (8.5-10.1); Creatinine Clr Calc Pharmacy 18.6 ml/min; Est GFR (African American) 23.7 ml/min; Est GFR (Non-African American) 20.4 ml/min; Magnesium 1.9 mg/dl (1.8-2.4); Potassium 4.4 mmol/L (3.5-5.1)
[2020-09-17 08:38] LABS: Bilirubin,Total 0.5 mg/dl (0.2-1); Globulin 2.8 gm/dl (2.5-4.0); Total Protein 5.6 gm/dl (6.4-8.2)
[2020-09-17] MEDS: amLODIPine BESYLATE 5 MG TAB PO SCH ×2 (09:26→20:34)
[2020-09-17] MEDS: SIMVASTATIN 10 MG TAB PO SCH (09:27)
[2020-09-17] MEDS: THIAMINE HCL 300 MG in SODIUM CHLORIDE 0.9% 50 ML IV SCH (09:27)
[2020-09-17] MEDS: METOPROLOL TARTRATE 50 MG TAB PO SCH ×2 (09:28→20:34)
[2020-09-17] MEDS: TAMSULOSIN HCL 0.4 MG CAP PO SCH (09:28)
[2020-09-17] MEDS: LACTATED RINGER'S 1,000 ML IV SCH (11:14)
--- NOTE | 2020-09-17 12:37 | Gastrointestinal Consultation ---
Date of Consultation September 17, 2020 Assessment & Plan (1) Diarrhea: Patient is having a soft stool every other day and reports diarrhea once weekly. Will obtain abdominal imaging to exclude significant abnormalities, however suspect patient likely has overflow issues from underlying constipation. Would begin a fiber supplement and await CT imaging. (2) Unintentional weight loss: -Consider CT scan of abdomen/pelvis with po contrast for further as sessment Supervising Physician Co-Signing Physician Notes Agree with WOLFGANG Manning as above Abd: Soft, NT, ND, +BS Continue current therapy and supportive care Recommend Metamucil 1 tbsp in 8 oz glass of water daily No significant findings on CT abd/pelvis, therefore recommend outpatient endoscopic workup History of Present Illness Reason for Consultation: diarrhea Attending Physician: Maksim Torres History of Present Illness Patient is an 89 yo male with PMH of sick sinus syndrome s/p pacemaker, thoracic aneurysm, aortic regurgitation, dementia, CKD IV, HTN, anemia, myelodysplastic syndrome, prostate cancer s/p prostatectomy who reportedly has had a decrease in appetite and fluid intake in recent months. Daughter reported patient has been experiencing some diarrhea. Patient tells me that he typically only has diarrhea once per week and it typically occurs when he hasn't moved his bowels for a day. He notes that he typically has a soft stool daily to every other day. He does not have abdominal pain or rectal bleeding. It was reported that he does not feel hungry at home. During my visit he is eating his lunch quite well. Last colonoscopy was in 2006 and was unremarkable. He has not had abdominal imaging thus far in this hospitalization. No pertinent family history. Allergies Allergy/AdvReac Type Severity Reaction Status Date / Time Dyazide Allergy Unknown patient Verified 12/01/10 16:09 does not remember hydrochlorothiazide Allergy Unknown patient Unverified 09/15/20 15:56 does not remember triamterene Allergy Unknown patient Unverified 09/15/20 15:56 does not remember Home Medications Medication Instructions Recorded Confirmed Type omega-3 fatty acids-fish oil 360 1 cap PO BID #60 cap 08/01/18 09/15/20 Rx mg-1,200 mg capsule (Fish Oil) blood sugar diagnostic (Contour ea 12/10/18 08/18/20 History Test Strips) lancets (Microlet Lancet) ea 12/10/18 08/18/20 History amlodipine 5 mg tablet 5 mg PO BID #60 tab 02/06/20 09/15/20 Rx metoprolol tartrate 50 mg tablet 50 mg PO BID #180 tab 05/26/20 09/15/20 Rx multivitamin 1 tab PO DAILY 08/18/20 09/15/20 History simvastatin 10 mg tablet 10 mg PO QAM 09/15/20 09/15/20 History tamsulosin 0.4 mg capsule (Flomax) 0.4 mg PO QAM 09/15/20 09/15/20 History Patient History Medical History Adenocarcinoma of prostate Adrenal cortical adenoma Anemia Aneurysm of thoracic aorta Aortic regurgitation Cardiac pacemaker Chronic kidney disease, 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 Diabetic peripheral neuropathy DVT (deep venous thrombosis) Hyperlipidemia Hypertension Myelodysplasia (myelodysplastic syndrome) Osteoarthritis Vertebral compression fracture Surgical History History of radical retropubic prostatectomy S/P inguinal hernia repair S/P placement of cardiac pacemaker Family History Sister Chronic kidney disease Brother Prostate cancer Denies family history of Ovarian cancer Myocardial infarction Breast cancer Colorectal cancer Social History Smoking Status: Former smoker Second Hand Exposure: Yes; Do You Dip or Chew Tobacco: No; Hx Alcohol Use: No Hx Substance Use: No Preferred Language: Sinhala Communication Ability: Effective Visual Impairment: No Limitations Hearing Ability: Normal Independent Distributor Required: No Beliefs That Will Affect Care: None marital status: Current Living Situation: Family current occupational status: retired Other Information That Helps Us Care for You: No Feels Safe at Home: Yes Safety Concerns: Feels Safe At This Time Childhood Exposure to Second-Hand Smoke: Yes Dental Care, Regularly: Yes Physical Activity Frequency: Does not Exercise Seatbelt Use: always Sunscreen Use: No Assistive Devices: None Review of Systems Constitutional: no fever and no chills Respiratory: no cough and no dyspnea Cardiovascular: no chest pain Gastrointestinal: no abdominal pain Physical Exam Constitutional: WD/WN, vitals as above Respiratory: normal respiratory effort Gastrointestinal (Abdomen): normal bowel sounds, soft, nontender, no hepatosplenomegaly Psychiatric: A+Ox3, euthymic affect Results & Data ([facility]) Vital Signs (Past 12 Hours) Vital Signs Temp Pulse Pulse Resp BP Pulse Ox 09/17/20 08:37 60 137/57 L 09/17/20 07:24 36.9 C 64 16 128/45 L 95 PG Care Time/CCT Total # of Minutes Spent Total Time Spent with Patient: Total time spent is greater than 50% in coordination of care (as documented) at patient's floor/unit and/or counseling patient: Coding Level of Care Code 57629 Initial Inpt Care Lvl 3 Diagnoses Diarrhea R19.7 Unintentional weight loss R63.4
[2020-09-17] MEDS: HEPARIN SOD 5,000 UNIT/0.5 ML VIAL SQ SCH ×2 (15:09→20:33)
--- NOTE | 2020-09-17 16:48 | CT Scan Report ---
CT abd pelvis oral con only CLINICAL HISTORY: Unintentional weight loss COMPARISON STUDY: CT of the abdomen and pelvis August 09, 2017. TECHNIQUE: Axial images of the abdomen and pelvis were obtained without IV contrast. Oral contrast wa s administered. Automated exposure control was utilized for the study. A dose lowering technique was utilized adhering to the principles of ALARA. FINDINGS: No opacities within the lower lungs favor scarring or atelectasis. Moderate cardiomegaly is noted. Pacer leads are partially imaged. Evaluation of the abdomen and pelvis is suboptimal on this unenhanced examination. No pneumatosis, free air or portal venous gas is present. This exam is also c ompromised by motion artifact. Unenhanced images of the liver, spleen, adrenal glands and pancreas ar e unremarkable. There is no biliary or pancreatic ductal dilatation. There are numerous bilateral dulce maria al lesions. These are suboptimally assessed on this unenhanced exam. The majority of these measure wa ter attenuation and favor cysts. A 4.3 cm lesion within the midpole of the left kidney measures above water attenuation however this is decreased in size since prior exam and is likely benign. There is no evidence for hydronephrosis. The appendix is normal. There is colonic diverticulosis without evide nce for acute diverticulitis. Bladder wall thickening is noted. There are a few small bladder diverti cula. There is mild mesenteric infiltration with a few prominent mesenteric lymph nodes. These lymph nodes measure up to 1.7 x 0.9. There is an old L2 compression fracture. IMPRESSION: 1. No acute process within the abdomen or pelvis. 2. Suboptimal evaluation given the lack of IV contrast. 3. No bowel obstruction. Colonic diverticulosis without evidence for acute diverticulitis. 4. Mild mesenteric infiltration with prominent mesenteric lymph nodes. This favors sclerosing mesente ritis. However, a follow-up CT of the abdomen and pelvis in 6 months is recommended to ensure stabili ty. ACT 112: Negative or not required by law. Electronically signed by: Easton Jaime M.D. 09/17/2020 4:47 PM
--- NOTE | 2020-09-17 22:32 | Hospitalist Progress Note ---
Date of Service September 17, 2020 Assessment & Plan (1) Weakness: Plan: 1-2 months of increase sleepiness and fatigue. - no gross muscle weakness on exam - likley related to decrease in caloric intake - B12 - 820 from 529 - Folate level is normal. - Will add thiamine 300 mg IV daily for malnourishment - Calorie count, nutrition consult, evaluate for nutritional supplementation/meal replacement, nutrition log likely be helpful - Patient does not appear depressed and is in good spirits - His wbc counts and hgb/hct have been stable over the past year -Inflammatory markers are negative. - Could this be related to his cognitive impairment- consider re-engagement of cognition medication declined by patient back in January - This may help his overall stimulation - blood cultures ordered in EMD -May all be related to his decreased calorie intake, will likely benefit from followup with PCP. On 09.17 Patient had another episode of watery stool. It appears this is subacute-chronic after discussing case with daughter, will obytain CT scan of abdomen, inflammatory markers negative. consult GI (2) Diarrhea: Plan: Not infectious appearing, continue stool culture likely to be unhelpful - will follow amount and frequency while in house - this does not appear to be malabsorption but secondary to decreased intake - Will send TGA and IGA for evaluation of celiac - Follow stool count with nutritional intake for true evaluation of process -GI consult for EGD/colonoscopy -will defer for outpatient. (3) Recent weight loss: Plan: As above- (4) Hyperlipidemia: Plan: Continue statin (5) S/P placement of cardiac pacemaker: Plan: Appropriatly sensing and pacing - no acute needs (6) Hypertension: Plan: Well controlled (7) Mild cognitive impairment: Plan: Was to have nuerocognitive testing as outpatient- not sure if this was completed - This may be playing a bigger role in his function than originally thought -likely playing a role. (8) Pancytopenia: Plan: Myelodysplasia as underlying pathology - WBC, HGB/HCT, PLT count low - but at baseline and stable for the past year (9) Secondary hyperparathyroidism: Plan: Calcium normal - last PTH 86.4 - not on current therapy Admission and Anticipated Discharge Date Admission Date: September 17, 2020 Subjective Patient is forgetful. Patient had an episode of diarrhea. Updatd daughter by phone. Physical Exam Physical Exam: General: awake, alert, no apparent distress Head: Normocephalic, atraumatic ENT: PERRL, EOMI, no pharyngeal exudate, mucous membranes moist Neuro: AAO x 3, speech clear and appropriate, strength intact bilaterally 5/5, sensation intact and equal all extremities and dermatomes, no pronator drift Chest: equal rise and fall of the chest, no accessory muscle use, no heaves or thrills, Clear to auscultation, on room air, Cardiac: Regular rate and rhythm, telemetry reviewed- appropriately paced NSR, skin warm dry, cap refill <3 seconds, peripheral pulses +2 no JVD, no murmur, no edema GI: NABS x 4 quadrants, soft, nontender to palpation, no rebound, guarding or tenderness : Spontaneously voiding, no pain, no CVA tenderness, Extremities: Normal inspection, no peripheral edema or erythema, calfs nontender to palpation Psych: Normal mood and affect Skin: no rash or erythema Results & Data Results & Data ([facility]) Vital Signs (Past 12 Hours) Vital Signs Temp Pulse Resp BP Pulse Ox 09/17/20 15:31 36.7 C 61 16 153/56 H 97 PG Care Time/CCT Total # of Minutes Spent Total Time Spent with Patient: Total time spent is greater than 50% in coordination of care (as documented) at patient's floor/unit and/or counseling patient: Coding Level of Care Code 60010 Subseq Hosp Care Lvl 3 Diagnoses Weakness R53.1 Diarrhea R19.7 Recent weight loss R63.4 Hyperlipidemia E78.2 Hyperlipidemia type: mixed hyperlipidemia S/P placement of cardiac pacemaker Z95.0 Hypertension I10 Mild cognitive impairment G31.84 Pancytopenia D61.818 Secondary hyperparathyroidism N25.81 Time Spent (min) 35 (1) Hyperlipidemia Hyperlipidemia type: mixed hyperlipidemia Qualified Code(s): E78.2 - Mixed hyperlipidemia
[2020-09-17 23:29] VITALS: BP 151/62; O2SAT 96
[2020-09-18] MEDS: HEPARIN SOD 5,000 UNIT/0.5 ML VIAL SQ SCH ×2 (05:46→13:37)
[2020-09-18 07:45] VITALS: TEMP 98.4
[2020-09-18] MEDS: amLODIPine BESYLATE 5 MG TAB PO SCH (07:58)
[2020-09-18] MEDS: METOPROLOL TARTRATE 50 MG TAB PO SCH (07:58)
[2020-09-18] MEDS: SIMVASTATIN 10 MG TAB PO SCH (07:59)
[2020-09-18] MEDS: TAMSULOSIN HCL 0.4 MG CAP PO SCH (07:59)
[2020-09-18] MEDS: THIAMINE HCL 300 MG in SODIUM CHLORIDE 0.9% 50 ML IV SCH (08:00)
[2020-09-18 08:29] LABS: Basophils # (auto) 0.04 K/uL (0-0.2); Basophils % (auto) 0.7 %; Eosinophils % (auto) 1.8 %; Hematocrit (blood only) 25.3 % (42-52); Hemoglobin 8.8 g/dL (14.0-18.0); Immature Granulocytes # (auto) 0.01 K/uL (0.00-0.02); Immature Granulocytes % (auto) 0.2 %; Lymphocytes # (auto) 1.29 K/uL (1.2-3.4); Lymphocytes % (auto) 23.6 %; Mean Corpuscular Hgb Conc 34.8 g/dL (32-36); Mean Corpuscular Volume 94.8 fL (80-100); Mean Platelet Volume 9.8 fL (7.4-10.4); Monocytes # (auto) 0.41 K/uL (0.11-0.59); Monocytes % (auto) 7.5 %; Neutrophils # (auto) 3.61 K/uL (1.4-6.5); Neutrophils % (auto) 66.2 %; Platelet Count 114 K/uL (130-400); RDW Coefficient of Variation 13.7 % (11.5-14.5); RDW Standard Deviation 47.3 fL (36.4-46.3); Red Blood Count 2.67 M/uL (4.7-6.1); White Blood Count 5.46 K/uL (4.8-10.8)
[2020-09-18] MEDS ORDERED: PSYLLIUM 58.6% POWDER PACKET PO SCH (09:00)
[2020-09-18 09:02] LABS: BUN Creatinine Ratio 19.5 (10-20); Calcium 9.3 mg/dl (8.5-10.1); Creatinine Clr Calc Pharmacy 19.9 ml/min; Est GFR (African American) 25.7 ml/min; Est GFR (Non-African American) 22.2 ml/min; Magnesium 1.8 mg/dl (1.8-2.4); Potassium 4.4 mmol/L (3.5-5.1)
[2020-09-18] MEDS ORDERED: LOPERAMIDE HCL 2 MG CAP PO STA (12:31)
[2020-09-18 14:08] VITALS: PULSE 86
--- NOTE | 2020-09-19 07:49 | Discharge Summary ---
Date of Service September 18, 2020 Admission HPI Per Admitting Provider 89 YOM with past medical history of: sick sinus syndrome with pacemaker insertion, thoracic aneurysm, aortic regurgitation, memory impairment, CKD IV, HTN, anemia, myelodysplasia (no treatment), adenocarcinoma of the prostate s/p prostatectomy. Frail appearing gentlemen brought to the [facility] today with his daughter for concerns of decrease in appetite and fluid intake, increase in sleepiness as well as diarrhea. This has been going on for over the past month or two with noted weight loss per the daughter. Review of his outpatient appointment with his PCP on the same scale the patient was at 160lbs in March and 154lbs in July. He states that he just does not feel hungry to eat, he denies early satiety or nausea/vomiting while eating. He doesn't eat much meat or protein per the daughter. He has a loose BM about every other day, which is described as dark brown to brown, mostly liquid with some small formed particles that float on the top of the water. There is no blood or mucous in the stools. He does not have the urge to go to the bathroom shortly after he eats or drinks. There is no pain with his bowel movements or cramping of the abdomen. The patient had this evaluated by his PCP last month with a b12 level of 820, TSH 1.5 (today) and 2.2 in July. Patient will be observed and continue to evaluate his intake, calorie count, stool amount and assess for loss of appetite. Principal Diagnosis weakness Discharge Exam General: awake, alert, no apparent distress Head: Normocephalic, atraumatic ENT: PERRL, EOMI, no pharyngeal exudate, mucous membranes moist Neuro: AAO x 3, speech clear and appropriate, strength intact bilaterally 5/5, sensation intact and equal all extremities and dermatomes, no pronator drift Chest: equal rise and fall of the chest, no accessory muscle use, no heaves or thrills, Clear to auscultation, on room air, Cardiac: Regular rate and rhythm, telemetry reviewed- appropriately paced NSR, skin warm dry, cap refill <3 seconds, peripheral pulses +2 no JVD, no murmur, no edema GI: NABS x 4 quadrants, soft, nontender to palpation, no rebound, guarding or tenderness : Spontaneously voiding, no pain, no CVA tenderness, Extremities: Normal inspection, no peripheral edema or erythema, calfs nontender to palpation Psych: Normal mood and affect Skin: no rash or erythema Discharge Data Allergies Allergy/AdvReac Type Severity Reaction Status Date / Time Dyazide Allergy Unknown patient Verified 12/01/10 16:09 does not remember hydrochlorothiazide Allergy Unknown patient Unverified 09/15/20 15:56 does not remember triamterene Allergy Unknown patient Unverified 09/15/20 15:56 does not remember Consultations 09/15/20 17:34 ED Decision to Admit Routine 09/17/20 11:39 Consult Gastroenterology Routine Ordered Studies 09/17/20 12:47 CT abd pelvis oral con only Routine Hospital Course (1) Weakness: 1-2 months of increase sleepiness and fatigue. - no gross muscle weakness on exam - likley related to decrease in caloric intake - B12 - 820 from 529 - Folate level is normal. - Will add thiamine 300 mg IV daily for malnourishment - Calorie count, nutrition consult, evaluate for nutritional supplementation/meal replacement, nutrition log likely be helpful - Patient does not appear depressed and is in good spirits - His wbc counts and hgb/hct have been stable over the past year -Inflammatory markers are negative. - Could this be related to his cognitive impairment- consider re-engagement of cognition medication declined by patient back in January - This may help his overall stimulation - blood cultures ordered in [facility] -May all be related to his decreased calorie intake, will likely benefit from followup with PCP. On 09.17 Patient had another episode of watery stool. It appears this is subacute-chronic after discussing case with daughter, will obytain CT scan of abdomen, inflammatory markers negative. consult GI On 09/18 Recommended to discharge the patient on fiber supplements to help bulk up his stool. C. diff stool toxin was negative. Inflammatory markers negative. If diarrhea continues may consider immodium PRN. Consulted GI, recommended followup as outpatient for scope if symptoms continue. Spoke with daughter who is leaning towards conservative maangement at this time. Family refused placement to SNF at this time. (2) Diarrhea: Not infectious appearing, continue stool culture likely to be unhelpful - will follow amount and frequency while in house - this does not appear to be malabsorption but secondary to decreased intake - Will send TGA and IGA for evaluation of celiac - Follow stool count with nutritional intake for true evaluation of process -GI consult for EGD/colonoscopy -will defer for outpatient. (3) Recent weight loss: As above- (4) Hyperlipidemia: Continue statin (5) S/P placement of cardiac pacemaker: Appropriatly sensing and pacing - no acute needs (6) Hypertension: Well controlled (7) Mild cognitive impairment: Was to have nuerocognitive testing as outpatient- not sure if this was completed - This may be playing a bigger role in his function than originally thought -likely playing a role. (8) Pancytopenia: Myelodysplasia as underlying pathology - WBC, HGB/HCT, PLT count low - but at baseline and stable for the past year (9) Secondary hyperparathyroidism: Calcium normal - last PTH 86.4 - not on current therapy Total Time Total Time Spent Total Time Spent (In Minutes): 32 Discharge Plan Discharge Items Patient Disposition: Home - Home Health Services Reason For Visit: FAILURE TO THRIVE Discharge Diagnosis: FAILURE TO THRIVE Activity: Resume your previous activity Non-emergency contact: Primary Care Provider Call non-emergency contact if: you have any medication questions Follow-up/Referrals: Nathan Godinez MD [Primary Care Provider] - 09/28/20 10:15 am Diet: Regular Diet Comment: MINCED AND MOIST Addtl Attending Provider Instructions: You were seen fo diarrhea. Your inflammatory arkers were negative which makes inflammatory bowel disease unlikely. You were worked up for Clostridium difficile which was also negative. Will recommend fiber supplements to bulk up your stool to help limit diarrhea. If stools remain watery, may recommend loperamide. Recommend followup with PCP in 1-2 weeks. Recommend folllowup with Gastroenterology in 3-4 weeks for possible scope. Pending Studies at Discharge: No Stand-Alone Forms: [facility], Smoking Cessation Medications and DC Order Prescriptions: New Metamucil (with sugar) 3.4 gram Powder In Packet 1 ea PO QAM Qty: 30 RF: 0 loperamide 2 mg capsule 2 mg PO QID PRN (Reason: diarrhea) Qty: 60 RF: 0 Continued amlodipine 5 mg tablet 5 mg PO BID Qty: 60 RF: 11 metoprolol tartrate 50 mg tablet 50 mg PO BID Qty: 180 RF: 3 omega-3 fatty acids-fish oil [Fish Oil] 360-1,200 mg capsule 1 cap PO BID Qty: 60 RF: 0 (DME) Contour Test Strips strip See Dose Instructions .ROUTE .MEDSUPPLY RF: 0 (DME) lancets [Microlet Lancet] misc See Dose Instructions .ROUTE .MEDSUPPLY RF: 0 multivitamin Tablet 1 tab PO DAILY RF: 0 simvastatin 10 mg tablet 10 mg PO QAM RF: 0 tamsulosin [Flomax] 0.4 mg capsule 0.4 mg PO QAM RF: 0 Discharge Orders: Discharge Order (Routine); Ordered 09/18/20 Ordered By: Maksim Salmon/Other Patient Handouts: Preventing Falls in the Home Admission Data Admit Date/Time: 09/17/20 11:45 Attending Provider: Maksim Torres Admit Provider: Zackary Sharp Primary Care Provider: Nathan Godinez Other Providers: Jose Reinoso ; Byron Villarreal Other Interventions: Discharge Summary Assessment (RN) Last Done: 09/18/20 14:06 Coding Level of Care Code D/C DAY MANAGEMENT >30 MINS Diagnoses Weakness R53.1 Diarrhea R19.7 Recent weight loss R63.4 Hyperlipidemia E78.2 Hyperlipidemia type: mixed hyperlipidemia S/P placement of cardiac pacemaker Z95.0 Hypertension I10 Mild cognitive impairment G31.84 Pancytopenia D61.818 Secondary hyperparathyroidism N25.81 Time Spent (min) 32
== END 2020-09-18 15:15 | disposition home health service (06) ==
LOC: 3N 13:59 → ED 13:59 → SUATTDRO 18:16 → 3N 20:55